=== PATIENT | female | born 1975 | race Caucasian/White ===

== ENCOUNTER → 2024-05-17 09:47 | Outpatient (REF) | payer OTHER, SELFPAY | LOC: WDC 09:47 | PROVIDERS: ATTENDING PHYSICIAN Nurse Practitioner Women's Health; FAMILY PHYSICIAN Family Medicine | DX: N64.4 Mastodynia (principal) | CPT/HCPCS: 76642; 77061; 77065 ==

== ENCOUNTER 2024-05-25 17:34 | Emergency (ER) | payer OTHER, SELFPAY ==
[2024-05-25 17:46] VITALS: BP 128/68
--- NOTE | 2024-05-25 18:10 | ED.GENMED ---
History of Present Illness
General
Chief Complaint: Abdominal Pain
Time Seen by Provider: 05/25/24 18:09
History of Present Illness
History of Present Illness:
HPI: Over the last several weeks, the patient's been having left-sided upper abdominal discomfort. She saw PMD for which she was supposed to get an ultrasound later this month. She does not have right upper quadrant pain. Today, she notes some
chest discomfort as well as heart rate of 129 measured by her watch. She has an IUD and still gets periods occasionally. She does not have any history of abdominal surgeries. This does not feel like prior kidney stones to her. She overall has an
ongoing fullness to the upper abdomen. She feels that her symptoms worsens after eating.
EXAM:
GENERAL: Well appearing in no distress
HEENT: Moist oral mucosa
CARDIOVASCULAR: No murmurs, normal heart rate, regular rhythm, No chest wall tenderness
PULMONARY: No respiratory distress, breath sounds are clear and equal
ABDOMEN: Soft with no peritoneal signs, no tenderness
NEUROLOGIC: Excellent strength all extremities, no coordination deficits
PSYCHIATRIC: Appropriate mental status, normal insight and judgement
EXTREMITIES: Nontender, no edema, moves all extremities equally
SKIN: No rash, no lesions
TIME OF INITIAL ENCOUNTER: 6:10 PM
NUMBER AND COMPLEXITY OF PROBLEMS ADDRESSED AT THE ENCOUNTER
� Chronic conditions affecting care: Rommel's thyroiditis
� Acute Exacerbation and/or Progression of Chronic Illness: This is an acute problem
� Differential Diagnosis includes: Gastritis, esophagitis, biliary colic less likely as the symptoms are primarily on the left side, hiatal hernia, abdominal muscle strain, GERD
AMOUNT AND/OR COMPLEXITY OF DATA TO BE REVIEWED AND ANALYZED
� I performed an independent evaluation of and my interpretation is:
EKG: Sinus 74, normal axis, no acute ST abnormality, no old to compare
CT: CT imaging personally reviewed
X-rays:
Laboratory Studies: White count normal, hemoglobin normal, chemistries unremarkable including LFTs and lipase, hCG negative
Other:
� Review of other/old records: I reviewed records, CBC and chemistries were unremarkable in 2022; she had breast reduction surgery in December 2020
� Clinical information was obtained by an independent historian: None needed
� Prescriptions/Medications Considered but not given:
� Further testing considered but not performed:
RISK OF COMPLICATIONS AND/OR MORBIDITY OR MORTALITY OF PATIENT MANAGEMENT
� Social determinants of health affecting care: Lives at home, works as a hairdresser
� Discussion with other providers: I discussed the CT findings with the vision radiologist who did have some concern for the possibility of an internal hernia however I feel this is very unlikely. She has not had any vomiting
and there is no sign of obstruction. I did share the images with Dr. Thompson who also doubts obstruction. He suggested that we could obtain an oral contrast-enhanced CT but at this time the patient is overall feeling improved after Pepcid/Protonix
here. Doubt serious acute etiology as the symptoms have been going on for weeks to months I recommend that she continues omeprazole as an outpatient she will see GI.
� Escalation of care including admission/observation vs risk of discharge considered: Although she states her heart rate was as high as 129 today, she currently has heart rate of 68-72. Basic labs unremarkable.
Past History
Past History
ED Past Medical History: Hypothyroidism and Other (Renal calculus)
ED Past Surgical History: Other (Breast reduction)
Social History
Tobacco: Non-smoker
Alcohol: None
Personal:
Living: with family
Phy Exam
Physical Exam
Physical Exam:
See HPI
Course
Orders/Labs/Results
Orders:
Orders
05/25/24 17:50
ECG [Electrocardiogram (*1)] Urgent
Reason for Study: Chest Pain
EKG- Treatment ONCE
05/25/24 18:11
Test Result ONCE
05/25/24 18:21
CT Abd/pelvis W Iv Cont Urgent
Comment:
Reason For Exam: LUQ pain
Famotidine [Pepcid] 20 mg IV NOW STA
Pantoprazole [Protonix IV] 40 mg IV NOW STA
05/25/24 19:00
Comprehensive Metabolic Panel Urgent
HCG, Serum Qualitative Screen Urgent
Lipase Urgent
TSH Reflex To Free T4 Urgent
05/25/24 19:01
Complete Blood Count/With Diff Urgent
Abnormal Lab Results
05/25/24
19:01
RBC 4.07 L 10^6/uL
(4.20-5.40)
Hct 35.8 L %
(37.0-47.0)
MCH 31.9 H pg
(27.0-31.0)
05/25/24 19:01
05/25/24 19:00
Vital Signs
Initial and Last Documented VS:
Initial Vital Signs
Temp Pulse Resp BP Pulse Ox
98.4 F 92 18 128/68 99
05/25/24 17:46 05/25/24 17:46 05/25/24 17:46 05/25/24 17:46 05/25/24 17:46
Last Documented Vital Signs
Temp Pulse Resp BP Pulse Ox
98.4 F 77 19 97/46 100
05/25/24 17:46 05/25/24 19:45 05/25/24 19:45 05/25/24 19:00 05/25/24 19:45
*Critical Care Note
Total Time (30-74mins, 75-104mins- exclusive of procedures): Not Applicable
ED Attending Note
-
Portions of this chart may have been created with voice recognition software.� Occasional wrong word or��sound alike� substitutions may have occurred due to the inherent limitations of voice recognition software.
Discharge Plan
Departure
Prescriptions:
No Action
loratadine-pseudoephedrine 240 MG/10 MG tablet extended release 24 hr
1 tab PO DAILY
levothyroxine 50 MCG tablet
50 mcg PO DAILY AT 0700
cholecalciferol (vitamin D3) 1,000 UNITS tablet
1,000 units PO BID
tamsulosin [Flomax] 0.4 mg capsule
0.4 mg PO HS Qty: 7 0RF
ondansetron 4 mg tablet,disintegrating
4 mg PO Q8H PRN (Reason: nausea and vomiting) Qty: 7 0RF
Referrals:
Channing Genao DO [Family Provider] -
Interventions
Interventions:
*Risk Screen - Suicide Last Done: 05/25/24 18:44
*General Assessment Last Done: 05/25/24 18:44
*Neglect/Abuse Screening Last Done: 05/25/24 18:44
ED- Fall Risk Assessment Last Done: 05/25/24 18:44
*ED COVID-19 Vaccine History Last Done: 05/25/24 18:44
RK-Tcaejc-Rrdtuurels Assessment Last Done: 05/25/24 18:44
Discharge Date and Time
Print Language: [id number]
[2024-05-25 18:44] VITALS: BMI 24.0
[2024-05-25 18:45] VITALS: BP 107/47
[2024-05-25 19:00] VITALS: BP 97/46
[2024-05-25] MEDS: PEPCID 20 MG IV (19:01)
[2024-05-25] MEDS: PROTONIX IV 40 MG IV (19:03)
[2024-05-25 19:19] LABS: % Basophils 0.4 % (0-2); % Eosinophils 1.5 % (0-6); % Immature Granulocytes 0.4 % (0-0.5); % Lymphocytes 28.3 % (20.5-51.1); % Monocytes 6.9 % (1.7-9.3); % Neutrophils 62.5 % (42.2-75.2); Absolute Eosinophils 0.1 10^3/uL (0-0.7); Absolute Lymphocytes 2.2 10^3/uL (1.2-3.4); Absolute Monocytes 0.5 10^3/uL (0.1-0.6); Absolute Neutrophils 4.9 10^3/uL (1.4-6.5); Hematocrit 35.8 % (37.0-47.0); Mean Corp Hgb Conc. 36.3 g/dL (33.0-37.0); Mean Corpuscular Hgb 31.9 pg (27.0-31.0); Nucleated Red Blood Cells % 0 %; Platelet Count 248 10^3/uL (130-400); Red Blood Cell Count 4.07 10^6/uL (4.20-5.40); Red Cell Dist. Width 12.4 % (11.5-14.5); White Blood Cell Count 7.8 10^3/uL (4.8-10.8)
[2024-05-25 19:37] LABS: HCG, Serum Qualitative Screen Negative
[2024-05-25 19:43] LABS: ALT (SGPT) 17 U/L (0-35); AST (SGOT) 22 U/L (14-36); Albumin 3.9 g/dl (3.5-5.0); Alkaline Phosphatase 56 U/L (38-126); Blood Urea Nitrogen 13 mg/dl (7-17); Calcium 9.5 mg/dl (8.4-10.2); Carbon Dioxide 27 mmol/L (22-30); Chloride 103 mmol/L (98-107); Estimated Creatinine Clearance 79 ml/min; Glucose 80 mg/dl (70-99); Sodium 136 mmol/L (135-145); Total Bilirubin 0.5 mg/dl (0.2-1.3); Total Protein 6.7 g/dl (6.3-8.2); eGFR > 60.00
[2024-05-25 19:44] LABS: Lipase 129 U/L (23-300)
[2024-05-25 20:13] LABS: TSH Reflex To Free T4 0.84 uIU/ml (0.47-4.68)
[2024-05-25 21:01] VITALS: BP 98/50
== END 2024-05-25 21:54 | disposition home or self-care (01) ==
LOC: EMR 17:34
PROVIDERS: EMERGENCY PHYSICIAN Emergency Medicine; FAMILY PHYSICIAN Family Medicine
DX: R10.12 Left upper quadrant pain (principal)
CPT/HCPCS: 99285; 96374; 96375; 74177; 80053; 83690; 84443; 84703; 85025; 93005; Q9967